=== PATIENT | male | born 2000 | race Caucasian/White ===

== ENCOUNTER 2025-05-30 18:03 | Emergency (ER) | payer BC, SELFPAY ==
[2025-05-30 18:03] VITALS: BP 118/76; PULSE 93; RESP 16; TEMP 36.6; O2SAT 100; BMI 23.1
--- NOTE | 2025-05-30 18:22 | EDS_ITS ---
HPI History of Present Illness Chief Complaint: Chest Other Informant: patient Onset/Context/Timing Onset: Weeks Context: Gradual Onset Timing: Intermittent Current Severity: Mild Maximum Severity: Mild Narrative Narrative: 24-year-old male no CeeNU past medical history. No significant past surgeries. No history of DVT or PE or family history. States for the last month he has had intermittent left lateral rib cage pain. Worse with movement. Denies any table fall or trauma. No shortness of breath. Denies recent illness. No cough. No hemoptysis. No leg pain or swelling. Worse with movement. Denies any recent travel, surgery or immobilization. Prior similar symptoms: Yes Recent Illness/Hospitalization: No PFSH PFSH Medical History Seasonal allergies Home Medications ?Medication ?Instructions ?Recorded ?Last Taken ?Type NK 05/30/25 Unknown History Allergy/AdvReac Type Severity Reaction Status Date / Time No Known Allergies Allergy Verified 05/30/25 18:06 Family History Other Cancer Diabetes Hypertension Surgical History No pertinent past surgical history Social History Smoking Status: Never smoker alcohol intake: current substance use type: does not use ROS ROS ED ROS Narrative Left lateral rib cage pain worse with movement. No recent illness. Constitutional Constitutional ED: Denies chills or fever(s) Eyes Eyes: Denies blurry vision ENT ENT ED: Denies ear pain Cardiovascular Cardiovascular: Reports chest pain and other Details: Left lateral rib cage pain. Intermittent for a month. Worse with movement. Respiratory/Chest Respiratory/Chest: Denies cough or dyspnea Gastrointestinal Gastrointestinal: Denies abdominal pain Genitourinary Genitourinary ED: Denies dysuria or hematuria Musculoskeletal Musculoskeletal: Denies arthralgias Integumentary Denies abscess Neurologic Neurologic: Denies headache(s) Psychiatric Psychiatric: Denies anxiety Endocrine Endocrinology: Denies cold intolerance Hematologic/Lymphatic Hematologic/Lymphatic: Reports none Allergic/Immunologic Allergic/Immunologic ED: Denies mouth swelling, tongue swelling or urticaria EXAM Physical Exam Narrative Exam Narrative: 24-year-old male sitting upright in bed. Vital signs are stable afebrile. Pulse ox 100% on room air no signs of hypoxia. No distress. Clinically looks well. H EENT exam pupils round react light. Moist mucous memories. Neck non tender no lymphadenopathy. Back nontender. Lungs clear to auscultation bilaterally. Equal symmetrical. Heart regular rate and rhythm rate about 90 no murmur. Chest wall and ribs appear normal. There is no rash. There is no bruising. There is no crepitus or subcu air there is no reproducible pain. Normal in appearance. No rash. No signs of trauma. There is really no reproducible pain. Abdomen soft nontender normal bowel sounds without peritoneal signs. Moving all 4 extremities. Normal strength. Normal range of motion. Calves nontender without edema or cords. Equal symmetrical radial pulses. Neurologically is awake alert. He is answering questions following commands. Very benign exam. Const Vital Signs: 05/30/25 18:03 05/30/25 18:45 Temperature 98 F Temperature Source Temporal Pulse Rate 93 Respiratory Rate 16 Respiratory Effort Normal Non-Labored Respiratory Pattern Normal Blood Pressure 118/76 Blood Pressure Mean 90 Pulse Ox 100 Oxygen Delivery Method Room Air MDM MDM MDM Narrative Medical decision making narrative: 24-year-old male intermittent left lateral rib cage pain for a month. No history of trauma. Chest x-ray to be obtained. Most likely this is like an intercostal muscle strain is not really reproducible. Repeat exam unchanged we discussed his chest x-ray and treatment plan. Be discharged to home. Motrin Tylenol for pain if not improving follow-up. History & Record Review Discussion w/independent historian: Patient Additional record(s) reviewed:: No prior records Radiography Chest X-Ray - ED: 2 View, Read by ED Physician, Normal, Heart, Lungs, Mediast inum, Bony Structures and No Acute Disease Diagnostic Testing: Chest x-ray, 2 views, AP and lateral, interpreted by myself shows no acute abnormality. Normal cardiac silhouette. Normal lung miller. No pneumothorax. No effusion. Discharge Plan Triage Chief Complaint: Chest Other ED Provider: Jalil Evans Dx/Rx/DC Orders Clinical Impression: Acute chest wall pain Instructions: ED Strain Chest Wall Prescriptions: No Action NK Primary Care Provider: Care Physician,No Primary Referrals: Sebastian Rubin MD [Med Staff - Charge Authorizer, Family Practice] - 1 Week if not improving Care Physician,No Primary [Primary Care Provider, Medical] Yasmin Zaragoza, DYE HOUSE WHEEL OPERATOR-C [[facility] [place], [facility]] - 1 Week if not improving Activity Restrictions/Additional Instructions: Exam is good. Your chest x-ray is normal. Ice to the area. Motrin for pain and and inflammation. Tylenol for pain. This should progressively improve if not follow-up. Print Language: [place]an Disposition Disposition: Home, Self Care
--- NOTE | 2025-05-30 18:30 | RAD_ITS ---
PROCEDURE: CHEST PA AND LATERAL 05/30/2025 REASON FOR EXAM: ATRAUMATIC LEFT LATERAL RIB CAGE PAIN TECHNIQUE: Procedure Code: RADCXR Modality: DX Procedure: CHEST PA AND LATERAL COMPARISON: None FINDINGS: Hardware: None Heart: The heart size is normal. Mediastinum: The mediastinal contour is unremarkable. Lungs: The lungs are clear. Bones: The bones are unremarkable. RAD/Chest PA and Lateral IMPRESSION: No acute abnormality Reading Location: [id number]
[2025-05-30 18:53] VITALS: BP 118/76; PULSE 93; RESP 16; TEMP 36.6; O2SAT 100
--- OUTSIDE RECORDS SUMMARY | 2025-05-30 18:59 | XMS RPT_ITS | CCD ---
Author Organization [facility] Care Team Providers Care Press Shop Supervisor Name Role Phone Garrison Chávez Attending Unavailable Problems Problem Classification Problem Date Documented Da te Episodic/Chronic Other upper respiratory infections (1 source) Acute sinusitis, unspecified; Translations: [Acute sinusitis, unspecified] Onset: 04-23-2025 Episodic Viral infection (1 source) Plantar wart; Translations: [Plantar wart] Onset: 04-23-2025 Episodic Results Test Name Value Interpretation Reference Range Facil ity Urgent Care Visit Reporton 1 06-23-2024 Urgent Care Visit Report [facility] [address], [address] [place] [address] OFFICE VISIT Date of Service: 04/23/25 MR#: [id number] Acct: [id number] Name: DON PFEIFFER Rep #: [id number] : 2000 Provider: ADRIENNE Martines Age/Sex: 24/M Location[facility] Status: Signed Intake Vital Signs 04/23/25 08:46 Height 5 ft 9 in Weight: 155 lb BMI 22.8 BP 110/70 Blood Pressure Location Lt brachial Position Sitting Respiration 16 Pulse 90 Pulse Source NIBP Temp 98.4 F Temp Source Oral Pulse Oximetry (%) 97 Oxygen Delivery Method room air Intake Visit Reasons: SINUS CONGESTION,COUGH, SPLINTER ON SIDE OF R FOOT Chief Complaint: cough, congest, nausea, drainage/ right foot Spa Associate Required: No Is patient in pain?: No Allergies No Known Allergies Allergy (Verified 04/23/25 08:47) Medications ???Medication ???Instructions ???Recorded ???Confirmed ???Type amoxicillin 875 mg-potassium 1 tab PO Q12H 10 days #20 tabs 12/1004/23/25 Rx clavulanate 125 mg tablet ipratropium bromide 21 mcg (0.03 2 spray intranasal BID-TID PRN 12/1004/23/25 Rx %) nasal spray postnasal drainage #30 mL Have you fallen in the past year?: No Nurse's Note: cough, congest, nausea, drainage, scratchy throat x 2 weeks without resolve. trying dayquil/nyquil/robitu ssin without relief. also lateral right foot FB for unknown amount of time. denies pain or drainage to area. [facility] Medical History (Updated 04/23/25 @ 09:09 by Garrison DELEON, PA) Seasonal allergies Surgical History (Updated 04/23/25 @ 08:49 by Lesa Holm) No pertinent past surgical history Family History (Updated 04/23/25 @ 08:49 by Lesa Holm) Other Cancer Diabetes Hypertension Social History (Updated 04/23/25 @ 08:49 by Lesa Holm) Smoking Status: Never smoker alcohol intake: current substance use type: does not use HPI HPI Chief Complaint: cough, congest, nausea, drainage/ right foot Details: DON PFEIFFER, is a 24 M who presents to the office today for complaint of cough, sinus congestion/pressure and drainage as well as a right foot concern. Patient states the cough and congestion started approximately 2 weeks ago with a sinus headache. He has had no fever, chills or sweats. No nausea, vomiting or diarrhea. No hemoptysis, shortness of breath or difficulty breathing. Patient states that the right outer foot has a spot on it and he is concerned for either a wart or a foreign body. Patient states he noticed it and his started digging at it. No numbness, tingling or loss of range of motion of the foot. No other associated symptoms or alleviating/aggravati ng factors. ROS Const Constitutional: No other (6 system ROS completed with pertinent findings in the HPI otherwise normal.) Exam Const General: cooperative and healthy appearing [facility] Head: normal to inspection Ears: hearing grossly normal bilaterally, TM's normal bilaterally and EAC's normal Nose: nasal discharge purulent Face and sinus: sinus tenderness frontal and maxillary Mouth: oral mucosae normal Throat: abnormal tonsil bilaterally erythema and hypertrophy 1+ and postnasal drainage Resp Effort Inspection: normal respiratory effort Auscultation: Bilateral: Clear to Auscultation Cardio Rate: regular rate Rhythm: regular rhythm Skin Other: Plantar wart lateral right foot. Neuro General: patient alert Psych Appearance: grossly normal Mental Status: mental status grossly normal Coding Level of Care Code Off vis,new,level 3 Diagnoses Plantar wart, right foot B07.0 Acute sinusitis J01.90 Assessment and Plan Assessment and Plan (1) Plantar wart, right foot: Status: Acute (2) Acute sinusitis: Status: Acute Medications: New amoxicillin-pot clavulanate 875-125 mg 1 TAB PO Q12H 20 tabs 0RF 10 days J01.90 - Acute sinusitis, unspecified ipratropium bromide administer into each nostril 2 sprays intranasal BID-TID PRN 30 mL 0RF postnasal drainage Plan Augmentin and Atrovent as prescribed today. Encouraged to get plenty of rest, drink lots of clear liquids, and use Tylenol or Ibuprofen (unless contraindicated) for fever and comfort. Patient also educated on other symptomatic management techniques. To be seen in 7-10 days if no improvement; sooner if worsening of symptoms. Patient advised he needs to follow-up with podiatry for his plantar wart or his primary care. Patient advised of potential red flags and when appropriate to report to the ED. Patient verbalized understanding and agreement with all the above. Clinical Quality Measures Falls Risk Screening/Assistive Devices Have you fallen in the past year?: No 04/23/25 0910 Date Garrison (more content not included)... Normal [facility] Encounters Encounter Date Encounter Type Care Provider Facility Start: 04-23-2025 End: 04-23-2025 ambulatory Garrison DELEON [place] Date Payer Category Payer Self-pay 2025 Unknown [id number] Unknown [id number] Summary Purpose Family History No Family History Records Found Advance Directives No Advanced Directives Records Found Additional Source Comments (unrecognized sect ion and content) No Status Records Found INFORMATION SOURCE (unrecogn ized section and content) DATE CREATED AUTHOR 04/24/2025 [facility] FOR RECORDS PERTAINING TO PATIENTS WHO ARE OR HAVE BEEN ENROLLED IN A CHEMICAL DEPENDENCY/SUBSTANCEABUSE PROGRAM, SOME INFORMATION MAY BE OMITTED. This clinical summary was aggregated from multiple sources. Caution should be exercised in using it in the provision of clinical care. This summary normalizes information from multiple sources, and as a consequence, information in this document may materially change the coding, format and clinical context of patient data. In addition, data may be omitted in some cases. CLINICAL DECISIONS SHOULD BE BASED ON THE PRIMARY CLINICAL RECORDS. [facility] [employer] [facility]. provides no warranty or guarantee of the accuracy or completeness of information in this document.
== END 2025-05-30 18:58 | disposition home or self-care (01) ==
LOC: ED 18:57
PROVIDERS: Emergency Provider Emergency Medicine; Visit Provider Emergency Medicine
DX: R07.89 Other chest pain (principal)
CPT/HCPCS: 71046; 99282